=== PATIENT | male | born 1995 | race Caucasian/White ===

== ENCOUNTER 2021-01-27 12:44 | Emergency (ER) | payer OTHER, SELFPAY ==
[2021-01-27 12:59] VITALS: BP 153/108; PULSE 116; RESP 16; TEMP 37.2; O2SAT 100
--- NOTE | 2021-01-27 13:18 | ED.WOUNDLAC ---
HPI - Wound/Laceration General Chief Complaint: Wound/Laceration Stated Complaint: ear pain Time Seen by Provider: 01/27/21 13:18 Source: patient, RN notes reviewed and old records reviewed Mode of arrival: ambulatory Limitations: no limitations History of Present Illness HPI narrative: 25 year old male who presets to express care with complaints of having small raised area behind his left ear which he noted on Wednesday. He states that he squeezed on the area and some clear drainage came out of it and now it is smaller. Patient is insulin dependent juvenile diabetic and states that he had a similar lesion several years ago to the back of his ear that they had to open up and drain which was a lot bigger. Patient denies any fevers, chills or sweats states area is tender to the back of his left ear above earlobe. Area is 0.25 diameter smooth raised nodule with no redness noted. minimally warm to touch, no drainage present at this time no induration of skin. Onset (ago): day(s) (1) Location: face (behind left ear) Associated symptoms: none Treatments prior to arrival: other (squeezed area) Related Data Home Medications Medication Instructions Recorded Confirmed gabapentin 600 mg PO QID 01/27/21 01/27/21 insulin glargine [Basaglar KwikPen SUBCUT 01/27/21 U-100 Insulin] insulin lispro unit SUBCUT 01/27/21 lisinopril 20 mg PO DAILY 01/27/21 01/27/21 ondansetron HCl 4 mg PO DAILY 01/27/21 01/27/21 Allergies Allergy/AdvReac Type Severity Reaction Status Date / Time No Known Allergies Allergy Mild Unverified 01/27/21 13:09 Review of Systems Review of Systems: Narrative: CONSTITUTIONAL: Denies fever, chills, or sweats. EYES: Denies visual changes, redness, or discharge. ENT: Denies rhinorrhea, congestion, sore throat, or otalgia. CARDIOVASCULAR: Denies chest pain, palpitations, or edema. RESPIRATORY: Denies cough or dyspnea. GASTROINTESTINAL: Denies abdominal pain, nausea, vomiting, or diarrhea. GENITOURINARY: Denies dysuria or hematuria. SKIN: Denies rash or itching.small raised sooth nodule behind left ear above earlobe tissue, no drainage noted or redness MUSCULOSKELETAL: Denies back pain, joint pain, or myalgia. NEUROLOGIC: Denies headache, numbness, or weakness. PSYCHIATRIC: Denies anxiety or depression. All systems reviewed & are unremarkable except as noted in HPI and below PMFSH Past Medical History Medical History (Updated 01/28/21 @ 00:00 by Amish Madden) Insulin dependent diabetes mellitus juvenile Surgical History Surgical History (Updated 01/28/21 @ 16:42 by Belinda Landeros NP) History of eye surgery Hx of cholecystectomy Family History Family History (Updated 01/27/21 @ 13:41 by Belinda Landeros NP) Grandparent Breast cancer Diabetes mellitus Father No problems noted. Father Hypertension Social History Social History (Updated 01/27/21 @ 13:38 by Belinda Landeros NP) Smoking status: Never smoker Alcohol intake: current Alcohol use details: rare Substance use: never Living arrangements: with family Gender identity (if verbalized by the patient): Male Comments At time of signature, agree with nursing past medical, surgical, social and family history. There is no relevant family history pertinent to the presenting complaint Exam Narrative: Exam Narrative: GENERAL: Well-appearing, well-nourished, and in no acute distress. HEAD: Normocephalic, atraumatic. EYES: PERRLA and EOMI. ENT: Nares clear, no rhinorrhea or epistaxis. Mucous membranes moist. NECK: Supple.no lymphadenopathy CHEST: Clear to auscultation. No respiratory distress.SAO2 199% on room air HEART: Regular rate and rhythm. No murmur heard. Normal peripheral pulses. ABDOMEN: Soft, nontender, nondistended, normal active bowel sounds. EXTREMITIES: Normal range of motion. No edema. SKIN: Warm, dry, no rash.0.25 raised smooth nodule behind left ear on cartilage area above earlobe, no redness minimal warm
== END 2021-01-27 13:57 | disposition home or self-care (01) ==
PROVIDERS: Emergency Provider Registered Nurse
DX: H93.8X2 Other specified disorders of left ear (principal); E10.9 Type 1 diabetes mellitus without complications
CPT/HCPCS: 99213; G0463

== ENCOUNTER 2021-02-10 12:07 | Emergency (ER) | payer OTHER, SELFPAY ==
[2021-02-10 12:22] VITALS: BP 149/94; PULSE 117; RESP 117; TEMP 36.7; O2SAT 100
[2021-02-10 14:20] VITALS: BP 132/88; PULSE 104; RESP 14; O2SAT 100
[2021-02-10 14:32] VITALS: BP 116/89; PULSE 108; RESP 18; TEMP 36.7; O2SAT 100
--- NOTE | 2021-02-10 14:44 | ED.GENADULT ---
HPI - General Adult General Chief complaint: Extremity Injury, Lower Stated complaint: R foot injury; ocl already on Time Seen by Provider: 02/10/21 14:28 Source: patient Mode of arrival: ambulatory Limitations: no limitations History of Present Illness HPI narrative: Patient presents with chief complaint of wanting evaluation of his right foot. Patient states that he fractured the fifth metatarsal on and was seen at [place] and put in a posterior splint. Patient states he says an orthopedic follow-up on Wednesday but he was at work today and noticed some warmth and redness to the toe and wanted to have it evaluated to make sure he was not showing signs of infection due to him having type 1 diabetes. Patient denies fever, chills, nausea, vomiting, diarrhea or any other symptoms. Related Data Home Medications Medication Instructions Recorded Confirmed gabapentin 600 mg PO QID 01/27/21 01/27/21 insulin glargine [Basaglar KwikPen SUBCUT 01/27/21 U-100 Insulin] insulin lispro unit SUBCUT 01/27/21 lisinopril 20 mg PO DAILY 01/27/21 01/27/21 ondansetron HCl 4 mg PO DAILY 01/27/21 01/27/21 Allergies Allergy/AdvReac Type Severity Reaction Status Date / Time No Known Allergies Allergy Mild Unverified 01/27/21 13:09 Review of Systems Review of Systems: Narrative: CONSTITUTIONAL: Denies fever, chills, or sweats. EYES: Denies visual changes, redness, or discharge. ENT: Denies rhinorrhea, congestion, sore throat, or otalgia. CARDIOVASCULAR: Denies chest pain, palpitations, or edema. RESPIRATORY: Denies cough or dyspnea. GASTROINTESTINAL: Denies abdominal pain, nausea, vomiting, or diarrhea. GENITOURINARY: Denies dysuria or hematuria. SKIN: Denies rash or itching. MUSCULOSKELETAL: Reports swelling and redness and fracture denies back pain, joint pain, or myalgia. NEUROLOGIC: Denies headache, numbness, dizziness, or weakness. PSYCHIATRIC: Denies anxiety or depression. [facility] Past Medical History Medical History (Updated 02/10/21 @ 14:58 by Laura Shaw PA-C) Insulin dependent diabetes mellitus juvenile Surgical History Surgical History (Updated 01/28/21 @ 16:42 by Belinda Landeros NP) History of eye surgery Hx of cholecystectomy Family History Family History (Updated 01/27/21 @ 13:41 by Belinda Landeros NP) Grandparent Breast cancer Diabetes mellitus Father No problems noted. Father Hypertension Social History Social History (Updated 01/27/21 @ 13:38 by Belinda Landeros NP) Smoking status: Never smoker Alcohol intake: current Substance use: never Gender identity (if verbalized by the patient): Male Exam Narrative: Exam Narrative: GENERAL: Well-appearing, well-nourished, and in no acute distress. HEAD: Normocephalic, atraumatic. EYES: PERRLA and EOM NECK: Supple. No adenopathy or masses. CHEST: Clear to auscultation. No respiratory distress. No wheezes rales or rhonchi HEART: Regular rate and rhythm. ABDOMEN: Soft, nontender, nondistended, normal active bowel sounds. EXTREMITIES: Patient will disheveled posterior splint noted to right lower leg. Removed splint. There is no erythema, redness, swelling, abrasion, ecchymosis or any signs of infection to the toes. SKIN: Warm, dry, no rash. NEURO: No focal deficits. Alert and oriented x3. PSYCH: Normal mood and affect. Course Vital Signs Vital signs: Vital Signs Temperature 98.1 F 02/10/21 12:22 Pulse Rate 117 H 02/10/21 12:22 Respiratory Rate 117 H 02/10/21 12:22 Blood Pressure 149/94 H 02/10/21 12:22 Pulse Oximetry 100 02/10/21 12:22 Temperature 98.0 F 02/10/21 14:32 Pulse Rate 108 H 02/10/21 14:32 Respiratory Rate 18 02/10/21 14:32 Blood Pressure 116/89 02/10/21 14:32 Pulse Oximetry 100 02/10/21 14:32 Procedures Orthopedic Splinting/Casting Injury #1: Side: right Lower Extremity Injury Location: foot OCL: short leg Pre-Procedure Neuro Vascu
[2021-02-10 16:16] VITALS: BP 132/78; PULSE 78; RESP 18; O2SAT 99
== END 2021-02-10 16:17 | disposition home or self-care (01) ==
LOC: ANHED 16:01
PROVIDERS: Emergency Provider Emergency Medicine; PCP Family Medicine Sports Medicine
DX: S92.351D Displaced fracture of fifth metatarsal bone, right foot, subsequent encounter for fracture with routine healing (principal); E10.9 Type 1 diabetes mellitus without complications; Z79.4 Long term (current) use of insulin; X58.XXXD Exposure to other specified factors, subsequent encounter
CPT/HCPCS: 29515; 99282

== ENCOUNTER 2022-01-30 12:59 | Emergency (ER) | payer BC, SELFPAY ==
[2022-01-30 13:15] VITALS: BP 164/101; PULSE 113; RESP 18; TEMP 36.6; O2SAT 100
--- NOTE | 2022-01-30 13:39 | ED.NAVMDI ---
HPI - Nausea/Vomiting/Diarrhea General Chief complaint: Nausea/Vomiting/Diarrhea Stated complaint: Vomiting, upset stomach Time Seen by Provider: 01/30/22 13:45 Source: patient, RN notes reviewed and old records reviewed Mode of arrival: ambulatory Limitations: no limitations History of Present Illness HPI Narrative: 26 year old male presents to express care with complaints of eating IMO's Wednesday night, ate wings and Pizza and 2 hours after eating became nauseated with vomiting and then diarrhea. Patient reports that he took Imodium on 6-8 tabs with diarrhea resolved but he continues to be nauseated but no further emesis either since yesterday afternoon. Patient states that he has been drinking Gatorade and Pedialyte and water and his sugars have been running around 200 and he has not taken his insulin today, states that he checked his urine and he is negative for Ketones. Patient reports that he needs some Zofran for the nausea he is out and his doctor is out of the office today. Patient denies any abdominal pain, bowel sounds present of normal quality, no McBurney point tenderness or any CVA tenderness. MD elicited complaint: nausea, vomiting and diarrhea Onset (ago): day(s) (2) Associated nausea: Yes Related Data Home Medications Medication Instructions Recorded Confirmed gabapentin 600 mg PO QID 01/27/21 01/30/22 insulin glargine [Basaglar KwikPen 100 unit SUBCUT DIRECTED 01/27/21 U-100 Insulin] insulin lispro 100 unit SUBCUT DIRECTED 01/27/21 lisinopril 20 mg PO DAILY 01/27/21 01/30/22 Allergies Allergy/AdvReac Type Severity Reaction Status Date / Time No Known Allergies Allergy Mild Unverified 01/27/21 13:09 Review of Systems Review of Systems: CONSTITUTIONAL: Denies fever, chills, or sweats. EYES: Denies visual changes, redness, or discharge. ENT: Denies rhinorrhea, congestion, sore throat, or otalgia. CARDIOVASCULAR: Denies chest pain, palpitations, or edema. RESPIRATORY: Denies cough or dyspnea. GASTROINTESTINAL: Denies any acute abdominal pain, states continued nausea, no vomiting, or diarrhea since yesterday around noon GENITOURINARY: Denies dysuria or hematuria. SKIN: Denies rash or itching. MUSCULOSKELETAL: Denies back pain, joint pain, or myalgia. NEUROLOGIC: Denies headache, numbness, or weakness. PSYCHIATRIC: Denies anxiety or depression. All systems reviewed & are unremarkable except as noted in HPI and below PMFSH Past Medical History Medical History (Updated 01/30/22 @ 14:10 by Belinda Landeros NP) 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 Father Hypertension Social History Social History Smoking status: Never smoker Alcohol intake: current Alcohol use details: rare Substance use: never Gender identity (if verbalized by the patient): Male Comments At time of signature, agree with nursing past medical, surgical, social and family history. There is no relevant family history pertinent to the presenting complaint Exam Narrative: GENERAL: Well-appearing, well-nourished, and in no acute distress. HEAD: Normocephalic, atraumatic. EYES: PERRLA and EOMI. ENT: Nares clear, no rhinorrhea or epistaxis. Mucous membranes moist.TM's normal with good light reflex, throat pink with no lesions or exudates no tonsil swelling NECK: Supple, no lymphadenopathy CHEST: Clear to auscultation. No respiratory distress.SAO2 100% on room air HEART: Regular rate and rhythm. No murmur heard. Normal peripheral pulses. ABDOMEN: Soft, nontender to palpation, negative for any McBurney point tenderness, n
[2022-01-30 13:55] LABS: Glucose Point of Care 146 mg/dl (65-105)
[2022-01-30 14:05] VITALS: BP 155/101; PULSE 110
== END 2022-01-30 14:18 | disposition home or self-care (01) ==
PROVIDERS: Emergency Provider Registered Nurse; PCP Family Medicine Sports Medicine
DX: R11.2 Nausea with vomiting, unspecified (principal); R19.7 Diarrhea, unspecified; E86.0 Dehydration; H54.40 Blindness, one eye, unspecified eye; E10.40 Type 1 diabetes mellitus with diabetic neuropathy, unspecified
CPT/HCPCS: 81003; 82948; 99213; G0463

== ENCOUNTER 2023-07-18 11:09 | Emergency (ER) | payer OTHER, SELFPAY ==
--- NOTE | 2023-07-18 11:15 | ED.UPPEXIN ---
HPI - Extremity Injury (Upper) General Chief Complaint: Extremity Problem,Nontraumatic Stated Complaint: PAIN ALL OVER Time Seen by Provider: 07/18/23 11:11 Source: patient Mode of arrival: ambulatory Limitations: no limitations History of Present Illness HPI narrative: Patient is a 27-year-old male who presents with left elbow pain. Patient is a type 1 diabetic, has neuropathy and goes to dialysis 3 times a week. Reports he had 1 episode of pain 2 weeks ago and resolved. States episode this time has been present for 3 days. Patient has had similar episode in the past but unsure what the diagnosis was. Patient denies any numbness or tingling to the rest of his arm. Denies any pain in hand or fingers. Is still able to move hand and fingers normally. States moving low is painful and is very tender to touch. Denies any redness or warmth but does report swelling to the elbow. Has taken Tylenol with no relief. Denies any trauma to the elbow. Related Data Home Medications Medication Instructions Recorded Confirmed gabapentin 600 mg tablet 300 mg PO TID 01/27/21 07/18/23 insulin lispro 100 unit/mL 100 unit subcut DIRECTED 01/27/21 07/18/23 subcutaneous pen lisinopril 20 mg tablet 10 mg PO BID 01/27/21 07/18/23 aspirin 81 mg chewable tablet 81 mg PO DAILY 07/18/23 07/18/23 brimonidine 0.2 %-timolol 0.5 % 1 drp EACH EYE BID 07/18/23 07/18/23 eye drops clonidine HCl 0.3 mg tablet 0.3 mg PO BID 07/18/23 07/18/23 furosemide 80 mg tablet 80 mg PO USEASDIRECTD 07/18/23 07/18/23 latanoprost 0.005 % eye drops 1 drp EACH EYE DAILY 07/18/23 07/18/23 metoprolol tartrate 50 mg tablet 50 mg PO USEASDIRECTD 07/18/23 07/18/23 minoxidil 2.5 mg tablet 5 mg PO DAILY 07/18/23 07/18/23 nifedipine 60 mg tablet,extended mg PO 07/18/23 release 24 hr sevelamer HCl 800 mg tablet 800 mg PO USEASDIRECTD 07/18/23 07/18/23 Allergies Allergy/AdvReac Type Severity Reaction Status Date / Time No Known Allergies Allergy Mild Verified 07/18/23 11:20 Review of Systems Review of Systems: All systems reviewed & are unremarkable except as noted in HPI and below Constitutional: Constitutional: Denies body ache(s), Denies chills, Denies fatigue, Denies fever(s), Denies headache(s), Denies malaise and Denies weakness Eyes: Eyes: Denies blurry vision, Denies irritation and Denies loss of vision ENT: Denies otalgia, Denies headache(s), Denies nasal discharge, Denies sinus pain and Denies sore throat Cardiovascular: Cardiovascular: Denies chest pain, Denies irregular heart rhythm and Denies dyspnea Respiratory: Respiratory: Denies dyspnea Gastrointestinal: Gastrointestinal: Denies abdominal pain, Denies melena, Denies hematochezia, Denies diarrhea, Denies nausea and Denies vomiting Musculoskeletal: Musculoskeletal: Denies back pain, Denies myalgias, Reports arthralgias and Reports joint swelling Integumentary/Breasts: Skin/Breast: Denies pruritus and Denies rash Neurologic: Denies headache(s), Denies loss of vision and Denies weakness Psychiatric: Psychiatric: Reports no additional psychiatric complaints Endocrine: Endocrine: Denies fatigue PMFSH Past Medical History Medical History 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 Father Hypertension Social History Social History Smoking status: Never smoker Alcohol intake: current Alcohol use details: rare Substance use: never Living arrangements: with family Gender identity (if verbalized by the patient): Male Comments At time of sig
[2023-07-18 11:27] VITALS: BP 183/113; PULSE 104; RESP 16; TEMP 36.4; O2SAT 98
== END 2023-07-18 11:53 | disposition home or self-care (01) ==
PROVIDERS: Emergency Provider Nurse Practitioner Family; PCP Family Medicine Sports Medicine
DX: M70.22 Olecranon bursitis, left elbow (principal); E10.40 Type 1 diabetes mellitus with diabetic neuropathy, unspecified; Z79.4 Long term (current) use of insulin
CPT/HCPCS: 99213; G0463

== ENCOUNTER 2024-03-13 18:39 | Emergency (ER) | payer OTHER, SELFPAY ==
--- NOTE | ~2024-03-13 | XR_ITS ---
EXAM: XR hand LT min 3V DATE: 03/13/2024 20:04 HISTORY: Dog bite . COMPARISON: None available. FINDINGS: Lateral view limited by overlapping fingers. Normal mineralization. No fracture or dislocat ion. No lytic or blastic lesion. Joint spaces are maintained. No erosion or periosteal change. Soft t issues within normal limits. IMPRESSION: No acute osseous finding the left hand. Reviewed, dictated and finalized at location K.
[2024-03-13 18:44] VITALS: BP 145/89; PULSE 94; RESP 18; TEMP 36.8; O2SAT 100
[2024-03-13 18:50] VITALS: BP 124/84; PULSE 90; RESP 14; TEMP 36.9; O2SAT 100
[2024-03-13 18:53] LABS: Glucose Point of Care 433 mg/dl (65-105)
[2024-03-13 20:15] LABS: Basophils Absolute Auto 0.1 K/mm3 (0.0-0.1); Basophils Percent Auto 1.5 % (0.2-1.2); Eosinophils Absolute Auto 0.3 K/mm3 (0-0.3); Eosinophils Percent Auto 5.5 % (0-4.4); Hematocrit 48.8 % (42.0-52.0); Hemoglobin 15.6 g/dL (14.0-18.0); Immature Granulocyte Absolute 0.01 K/mm3 (0.00-0.031); Immature Granulocyte Percent A 0.2 % (0-0.5); Lymphocytes Absolute Auto 1.27 K/mm3 (0.9-3.2); Lymphocytes Percent Auto 20.6 % (18.3-44.2); Mean Corpuscular Hemoglobin 31.4 pg (26-34); Mean Corpuscular Volume 98.2 fl (80-100); Monocytes Absolute Auto 0.6 K/mm3 (0.1-0.6); Neutrophils Absolute Auto 3.9 K/mm3 (1.3-6.7); Neutrophils Percent Auto 62.2 % (45.5-73.1); Platelet Count Result 298 k/mm3 (150-375); Red Blood Count 4.97 M/mm3 (4.6-6.20); Red Cell Distribution Width 16.2 % (11.5-14.5); White Blood Count 6.2 K/mm3 (4.5-10.0)
[2024-03-13] MEDS: TETANUS,DIPHTHERIA,AC PERTUSSIS ADULT (0.5 ML) BOOSTRIX IM (20:17)
[2024-03-13 20:31] LABS: Beta-Hydroxybutyrate/Acetoacetate 0.08 mmol/L (0.02-0.27)
[2024-03-13 20:38] LABS: Alanine Aminotransferase 18 U/L (6-50); Albumin Level 5.6 g/dL (3.5-5.1); Alkaline Phosphatase 97 U/L (38-126); Anion Gap 21 mmol/L (4-12); Aspartate Amino Transferase 23 U/L (17-59); Bilirubin,Total 0.8 mg/dL (0.2-1.3); Blood Urea Nitrogen 33 mg/dL (9-20); Calcium 10.3 mg/dL (8.4-10.2); Carbon Dioxide 25 mmol/L (22-30); Chloride 95 mmol/L (98-107); Estimated CRCL calculation 9 ml/min; Estimated Glomerular Filt Rate 7; Glucose 191 mg/dL (65-110); Lactate Dehydrogenase 174 U/L (120-246); Potassium 5.4 mmol/L (3.4-5.0); Sodium 141 mmol/L (137-145)
[2024-03-13] MEDS: PIPERACILLN/TAZ 3.375GM/NS50ML 3.375 GM/50 ML BAG IVPB (20:56)
[2024-03-13 20:58] VITALS: BP 110/71; PULSE 92; RESP 14; TEMP 37.2; O2SAT 96
--- NOTE | 2024-03-13 22:00 | ED.GENADULT ---
HPI - General Adult General Chief complaint: Wound/Laceration Stated complaint: wound left hand Time Seen by Provider: 03/13/24 20:00 History of Present Illness HPI narrative: Patient is a 28-year-old gentleman who presents emergency department with chief complaint of dog bite to the left hand. Patient reports that he had a puncture wound present at the foot distal end of the for the 2nd metacarpal the patient reports that he is on dialysis and is a diabetic the patient reports that he was seen in dialysis started on vancomycin reports he still has some redness the patient reports that his family member opened the wound up and is drained pus the patient states that he continues to have purulent drainage from the site is unsure of his last tetanus shot and today was at dialysis they recommended that he come to the emergency department for additional treatment Related Data Home Medications Medication Instructions Recorded Confirmed gabapentin 600 mg tablet 300 mg PO TID 01/27/21 07/18/23 insulin lispro 100 unit/mL 100 unit subcut DIRECTED 01/27/21 07/18/23 subcutaneous pen lisinopril 20 mg tablet 10 mg PO BID 01/27/21 07/18/23 aspirin 81 mg chewable tablet 81 mg PO DAILY 07/18/23 07/18/23 brimonidine 0.2 %-timolol 0.5 % 1 drp EACH EYE BID 07/18/23 07/18/23 eye drops clonidine HCl 0.3 mg tablet 0.3 mg PO BID 07/18/23 07/18/23 furosemide 80 mg tablet 80 mg PO USEASDIRECTD 07/18/23 07/18/23 latanoprost 0.005 % eye drops 1 drp EACH EYE DAILY 07/18/23 07/18/23 metoprolol tartrate 50 mg tablet 50 mg PO USEASDIRECTD 07/18/23 07/18/23 minoxidil 2.5 mg tablet 5 mg PO DAILY 07/18/23 07/18/23 nifedipine 60 mg tablet,extended 60 mg PO DAILY 07/18/23 07/18/23 release 24 hr sevelamer HCl 800 mg tablet 800 mg PO USEASDIRECTD 07/18/23 07/18/23 Allergies Allergy/AdvReac Type Severity Reaction Status Date / Time No Known Allergies Allergy Mild Verified 03/13/24 18:39 Review of Systems Review of Systems: A 10 system review of systems was completed on the patient and is negative except for what is stated in the HPI. Nursing and ancillary documentation was reviewed. 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 Father Hypertension Social History Social History Smoking status: Never smoker Alcohol intake: current Alcohol use details: rare Substance use: never Living arrangements: with family Gender identity (if verbalized by the patient): Male Exam Narrative: GENERAL: Well-appearing, well-nourished, and in no acute distress. HEAD: Normocephalic, atraumatic. EYES: PERRLA and EOMI. ENT: Nares clear, no rhinorrhea or epistaxis. Mucous membranes moist. NECK: Supple. CHEST: Clear to auscultation. No respiratory distress. HEART: Regular rate and rhythm. No murmur heard. Normal peripheral pulses. ABDOMEN: Soft, nontender, nondistended, normal active bowel sounds. EXTREMITIES: Normal range of motion. No edema. There is erythema present at the MCP joint area patient has full range of motion of the finger no signs of tenosynovitis the edema of the finger SKIN: Warm, dry, no rash. NEURO: No focal deficits. Alert and oriented x3. PSYCH: Normal mood and affect. Course Vital Signs Vital signs: Vital Signs Temperature 36.8 C 03/13/24 18:44 Pulse Rate 94 03/13/24 18:44 Respiratory Rate 18 03/13/24 18:44 Blood Pressure 145/89 H 03/13/24 18:44 Pulse Oximetry 100 03/13/24 18:44 Oxygen
[2024-03-13 22:26] VITALS: PULSE 82; RESP 15; O2SAT 100
== END 2024-03-13 22:27 | disposition home or self-care (01) ==
PROVIDERS: Emergency Provider Emergency Medicine; PCP Family Medicine Sports Medicine
DX: S61.452A Open bite of left hand, initial encounter (principal); W54.0XXA Bitten by dog, initial encounter; E10.9 Type 1 diabetes mellitus without complications; Z79.4 Long term (current) use of insulin; Z23 Encounter for immunization
CPT/HCPCS: 36415; 73130; 80053; 82010; 82948; 83605; 83615; 85025; 87040; 90471; 90715; 96365; 99284; J2543